=== PATIENT | female | born 1995 | race American Indian/Alaskan Native ===

== ENCOUNTER 2017-12-20 23:35 | Emergency (ER) | payer BC ==
[2017-12-20] MEDS ORDERED: TYLENOL ONE (23:58)
[2017-12-21] VITALS: BP 113/71
[2017-12-21] MEDS ORDERED: TYLENOL PO ONE
--- NOTE | 2017-12-21 00:57 | XRay Report ---
FINAL REPORT PROCEDURE: XR FOOT 3+V LT TECHNIQUE: LEFT foot radiographs, AP, lateral, and oblique views. CPT 40046 HISTORY: s/p fall COMPARISON: No prior studies are available for comparison. FINDINGS: Fracture (s) and/or Dislocation(s): None . Alignment: Normal . Joint space(s): Normal . Soft tissues: Normal . Bone mineralization: Normal . Foreign bodies: None . Calcaneal spurring: None . IMPRESSION: There is no evidence of an acute fracture or dislocation of the foot..
[2017-12-21] MEDS ORDERED: TORADOL IM ONE (05:02)
--- NOTE | 2017-12-21 05:08 | Emergency Department Report ---
HPI - General Chief Complaint: Extremity Injury, Lower Time Seen by Provider: 12/21/17 05:02 - HPI HPI: The patient is 22-year-old female who presents for evaluation of left foot pain. The patient reports twisting her left foot while jump on a trampoline at 6 PM earlier this evening. She complains of constant pain since, aching in quality, moderate severity, exacerbated with weightbearing or attempts to ambulate. She denies, injury to the head, headache, chest pain, dyspnea, neck pain, back pain, abdominal pain, paresthesia or motor deficit in the left lower extremity. ED Past Medical Hx - Past Medical History Previous Medical History?: Yes Additional medical history: pharnygitis 01/31 - Surgical History Past Surgical History?: No - Social History Smoking Status: Former Smoker Substance Use Type: None - Medications Home Medications: Home Medications Medication Instructions Recorded Confirmed Last Taken Type Cyclobenzaprine [Flexeril 10mg] 10 mg PO TID PRN #20 tablet 01/06/15 Unknown Rx Ibuprofen [Motrin] 600 mg PO Q8H PRN #30 tablet 01/06/15 Unknown Rx Ibuprofen [Motrin 800 MG tab] 800 mg PO Q8HR PRN #45 tablet 05/19/15 Unknown Rx Ibuprofen [Motrin] 800 mg PO Q8HR PRN #15 tablet 12/21/17 Unknown Rx traMADol [Ultram 50 MG tab] 50 mg PO Q6HR PRN #15 tablet 12/21/17 Unknown Rx ED Review of Systems ROS: Stated complaint: LT FOOT PAIN Other details as noted in HPI Constitutional: denies: fever ENT: denies: throat or neck pain Respiratory: denies: cough, shortness of breath Cardiovascular: denies: chest pain Endocrine: denies unexplained weight loss or gain Gastrointestinal: denies: abdominal pain, nausea Genitourinary: denies: dysuria Musculoskeletal: reports foot pain denies: leg swelling Skin: denies: rash Neurological: denies: headache Hematological/Lymphatic: denies: easy bleeding or easy bruising Psych: denies sadness or hopelessness Physical Exam - Physical Exam Vital Signs: Vital Signs 12/20/17 12/21/17 23:53 00:03 Temperature 98.1 F Pulse Rate 110 H Respiratory 18 18 Rate Blood Pressure 113/71 O2 Sat by Pulse 99 Oximetry Physical Exam: General: well-nourished, well-developed, no acute distress Head: Normocephalic, atraumatic Eyes: normal sclera ENT: Mucous membranes are pink and moist Neck: trachea midline, neck supple, No neck stiffness, no cervical adenopathy Respiratory: Breath sounds equal bilaterally, no wheezing, rales, or rhonchi Cardio: S1 and S2 present, no murmurs, rubs, gallops, capillary refill is brisk Abdomen: Normoactive bowel sounds, soft abdomen, no tenderness Musc: Left midfoot tenderness to palpation present, no obvious deformity, dorsalis pedes pulses intact, sensation and motor function in the foot and toes intact, No pitting edema Skin: No rash Neuro: no facial drooping, normal speech Psych: Normal affect ED Course Vital Signs 12/20/17 12/21/17 23:53 00:03 Temperature 98.1 F Pulse Rate 110 H Respiratory 18 18 Rate Blood Pressure 113/71 O2 Sat by Pulse 99 Oximetry ED Medical Decision Making - Medical Decision Making The patient was seen and examined by myself. The patient was given an IM dose of Toradol and 10 of Tylenol for pain. X-ray of the left foot is negative for acute fracture, subluxation, or dislocation. The patient was reevaluated and reported that their symptoms were markedly improved. The patient is stable for discharge with outpatient follow-up. The patient is given follow-up and return instructions. The patient expressed understanding and agreed with the plan. The patient is discharged in stable condition. Critical care attestation.: If time is entered above; I have spent that time in minutes in the direct care of this critically ill patient, excluding procedure time. ED Disposition Clinical Impression: Sprain of left foot Qualifiers: Encounter type: initial encounter Qualified Code(s): S93.602A - Unspecified sprain of left foot, initial encounter Disposition: - TO HOME OR SELFCARE Is pt being admited?: No Does the pt Need Aspirin: No Condition: Stable Instructions: Arthralgia (ED), Foot Sprain (ED) Referrals: PRIMARY CARE, [Primary Care Provider] - 3-5 Days Time of Disposition: 05:08
== END 2017-12-21 05:15 | disposition home or self-care (01) ==
LOC: ED 23:35
DX: S93.602A Unspecified sprain of left foot, initial encounter (principal); Z87.891 Personal history of nicotine dependence; X50.9XXA Other and unspecified overexertion or strenuous movements or postures, initial encounter; Y93.39 Activity, other involving climbing, rappelling and jumping off; Y99.8 Other external cause status; Y92.89 Other specified places as the place of occurrence of the external cause
CPT/HCPCS: 96372; 99283